=== PATIENT | female | born 1960 | race Asian ===

== ENCOUNTER 2016-10-09 17:45 | Emergency (ER) | payer BC ==
[~2016-10-09] VITALS: Ht 170.2 cm; Wt 65.8 kg
[2016-10-09] MEDS ORDERED: IBUPROFEN 600 MG TABLET PO ONE ×2 (17:55→18:00)
[2016-10-09 19:51] VITALS: BP 132/87
== END 2016-10-09 19:53 | disposition home or self-care (01) ==
LOC: ER 17:47
DX: S16.1XXA Strain of muscle, fascia and tendon at neck level, initial encounter (principal); S20.211A Contusion of right front wall of thorax, initial encounter; V43.62XA Car passenger injured in collision with other type car in traffic accident, initial encounter; Y93.89 Activity, other specified; Y92.488 Other paved roadways as the place of occurrence of the external cause; Y99.8 Other external cause status
CPT/HCPCS: 71010; 72050; 93005; 99284; A4606; Z7610